=== PATIENT | female | born 1940 | race African-American/Black ===

== ENCOUNTER → 2022-02-07 | Emergency (ER) | payer SELFPAY ==
[~2022-02-07] VITALS: Ht 162.6 cm; Wt 74.1 kg
[~2022-02-07] MED LIST: ASPIRIN 325 MG TABLET PO ONE; CONTRAST GIVEN. MC PRN; DICL50TA4 PO; DICLOFENAC SODIUM 25 MG TABLET.DR PO ONE; IOHEXOL 350 MG/ML 100 ML VIAL. IV ONE; IV NORMAL SALINE 500ML BAG 500 ML IV ONE; NITR100C62 PO; cefTRIAXone IV Push 1 GM VIAL. IVP ONE
--- NOTE | 2022-02-07 17:35 | PHYS DOC ---
General Adult EDM: Chief Complaint: MULTIPLE COMPLAINTS HPI: HPI: Patient is a 81 year old female who presents with yesterday awoke with left chest, shoulder, elbow pain that is just " sore feeling". States the pain is worse with movement. She denies any kidney injury. She denies cardiac medical history. She states that she did smoke 17 years ago. She denies any cardiac history with her family but states that her family has a history of a " funny beat or extra beat". She states she takes no medications daily. Rates her pain at a 2 out of 10 this time. Denies numbness or tingling, shortness of breath, headache, abdominal pain, nausea, vomiting, diarrhea, syncope, fall, vision change, focal weakness, extremity swelling. Review of Systems: Review of Systems: Constitutional: Denies fever or chills. [] Eyes: Denies change in visual acuity. [] HENT: Denies nasal congestion or sore throat. [] Respiratory: Denies cough or shortness of breath. [] Cardiovascular: + chest pain or denies edema. [] GI: Denies abdominal pain, nausea, vomiting, bloody stools or diarrhea. [] : Denies dysuria. [] Musculoskeletal: Denies back pain or +left shoulder joint pain. +left elbow pain[] Integument: Denies rash. [] Neurologic: Denies headache, focal weakness or sensory changes. [] Endocrine: Denies polyuria or polydipsia. [] Lymphatic: Denies swollen glands. [] Psychiatric: Denies depression or anxiety. [] Heart Score: C/O Chest Pain: Yes HEART Score for Chest Pain: HEART Score for Chest Pain Response (Comments) Value History Slighlty/Non-Suspicious 0 ECG Normal 0 Age > 65 2 Risk Factors 1 or 2 Risk Factors 1 Troponin < Normal Limit 0 Total 3 Risk Factors: Risk Factors: DM, Current or recent (<one month) smoker, HTN, HLP, family history of CAD, obesity. Risk Scores: Score 0 - 3: 2.5% MACE over next 6 weeks - Discharge Home Score 4 - 6: 20.3% MACE over next 6 weeks - Admit for Clinical Observation Score 7 - 10: 72.7% MACE over next 6 weeks - Early Invasive Strategies Current Medications: Current Medications Medications (Trade) Dose Ordered Sig/Elaine Start Time Stop Time Status Last Admin Dose Admin Aspirin (Alexis Aspirin) 325 mg 1X ONCE 02/07/22 17:30 02/07/22 17:31 UNV Physical Exam: PE: Constitutional: Well developed, well nourished, no acute distress, non-toxic appearance. [] HENT: Normocephalic, atraumatic, bilateral external ears normal, oropharynx moist, no oral exudates, nose normal. [] Eyes: PERRLA, EOMI, conjunctiva normal, no discharge. [] Neck: Normal range of motion, no tenderness, supple, no stridor. [] Cardiovascular:Heart rate regular rhythm, no murmur. Pain reproducable over chest [] Lungs & Thorax: Bilateral breath sounds clear to auscultation [] Abdomen: Bowel sounds normal, soft, no tenderness, no masses, no pulsatile masses. [] Skin: Warm, dry, no erythema, no rash. [] Back: No tenderness, no CVA tenderness. [] Extremities: No tenderness, no cyanosis, no clubbing, Left Elbow and shoulder ROM intact but painful with movement, no edema. [] Neurologic: Alert and oriented X 3, normal motor function, normal sensory funct ion, no focal deficits noted. [] Psychologic: Affect normal, judgement normal, mood normal. [] EKG: EK and read by Dr Lakhani as irregular sinus rhythm, prolonged OR, no STEMI [address] Javier as irregular sinus rhythm but no STEMI Radiology/Procedures: Radiology/Procedures: [] Impression: [facility] [address] [place] [address] IMAGING REPORT Signed PATIENT: DIPAK RASMUSSEN ACCOUNT: [id number] : 1940 LOCATION: ER AGE: 81 SEX: F EXAM STATUS: PRE ER ORD. PHYSICIAN: MARISEL WILLS APRN REASON: pain PROCEDURE: PORTABLE CHEST 1V EXAM: AP View of the chest DATE: 02/07/2022 5:34 PM INDICATION: Reason: pain / Spl. Instructions: / History: COMPARISON: No Prior FINDINGS: The heart is not enlarged. Mediastinal and hilar contours are normal. No focal parenchymal airspace opacity. No pleural effusion or pneumothorax. Shoulder joint osteoarthritis IMPRESSION: 1. No radiographic evidence for acute cardiopulmonary process. Electronically signed by: Beto Epstein MD (02/07/2022 5:58 PM) DM DICTATED and SIGNED BY: BETO EPSTEIN MD DATE: 02/07/221756 [address] [address] IMAGING REPORT Signed PATIENT: DIPAK RASMUSSEN ACCOUNT: [id number] : 1940 LOCATION: ER AGE: 81 SEX: F EXAM STATUS: PRE ER ORD. PHYSICIAN: MARISEL WILLS APRN REASON: pain PROCEDURE: SHOULDER 2+V LEFT EXAM: 3 Views Left Shoulder DATE: 02/07/2022 5:34 PM INDICATION: pain COMPARISON: No Prior FINDINGS: There is no evidence for acute fracture or dislocation. AC joint is congruent. Bulky inferior projecting glenohumeral osteophytes. Mild AC joint degenerative. Humeral head is not high riding. IMPRESSION: 1. No acute fracture or dislocation. 2. Moderate left glenohumeral joint osteoarthritis. 3. Mild AC joint DJD. Electronically signed by: Beto Epstein MD (02/07/2022 5:59 PM) DM DICTATED and SIGNED BY: BETO EPSTEIN MD DATE: 02/07/[address] [address] IMAGING REPORT Signed PATIENT: DIPAK RASMUSSEN ACCOUNT: [id number] : 1940 LOCATION: ER AGE: 81 SEX: F EXAM STATUS: PRE ER ORD. PHYSICIAN: MARISEL WILLS APRN REASON: pain PROCEDURE: ELBOW LEFT 3V EXAM: 3 views of the left elbow DATE: 02/07/2022 5:34 PM INDICATION: Reason: pain / Spl. Instructions: / History: COMPARISON: No Prior FINDINGS: No elbow joint effusion. No acute fracture or dislocation. Left ulnohumeral joint degenerative changes, with mild proliferative change. Mild soft tissue swelling overlying the olecranon. IMPRESSION: 1. No acute fracture or dislocation. 2. Left elbow degenerative changes most prominent at the ulnohumeral joint. 3. Mild soft tissue swelling overlying the olecranon. Electronically signed by: Beto Epstein MD (02/07/2022 6:00 PM) DM DICTATED and SIGNED BY: BETO EPSTEIN MD DATE: 02/07/22 8359 [facility] [address] [place] [address] IMAGING REPORT Signed PATIENT: DIPAK RASMUSSEN ACCOUNT: [id number] : 1940 LOCATION: ER AGE: 81 SEX: F EXAM STATUS: REG ER ORD. PHYSICIAN: MARISEL WILLS APRN REASON: CHEST PAIN, TACHYCARDIA PROCEDURE: CT ANGIOGRAPHY CHEST EXAM: CT chest with contrast - pulmonary embolus protocol CLINICAL HISTORY: Reason: CHEST PAIN, TACHYCARDIA / Spl. Instructions: IV OMNI 350 90 MLS / History: . COMPARISON: None. TECHNIQUE: CT of the chest following the administration of intravenous contrast during the pulmonary arterial phase. Axial, coronal and sagittal reformatted images were generated including MIP images. ---PQRS compliance statement - One or more of the following individualized dose reduction techniques were utilized for this study: 1. Automated exposure control 2. Adjustment of the mA and/or kV according to patient size 3. Use of iterative reconstruction technique--- FINDINGS: CHEST: Diagnostic quality: Adequate. Pulmonary emboli: None seen Right heart strain: None Pulmonary arteries: Normal in caliber. Heart is not enlarged. No pericardial effusion. Coronary calcifications are seen. Reflux of contrast into the IVC and hepatic veins likely from contrast injection. No axillary lymphadenopathy. No mediastinal or hilar lymphadenopathy. Linear opacities lung bases, likely atelectasis. No lobar consolidation. No suspicious lung nodule or mass. Visualized Upper abdomen: Unremarkable. Bones: Multilevel degenerative changes of the spine are are seen. IMPRESSION: No evidence for acute pulmonary embolus. Electronically signed by: Beto Epstein MD (02/07/2022 7:08 PM) DM DICTATED and SIGNED BY: BETO PESTEIN MD DATE: 02/07/221901 Course & Med Decision Making: Course & Med Decision Making Pertinent Labs and Imaging studies reviewed. (See chart for details) See HPI. Alert and oriented x4. Ambulatory steady gait. Skin pink warm and dry. No joint or extremity edema. Radial pulse strong present. Cap refill less than 2 seconds. Pain over chest is reproducible with palpation. Pain in left extremity is reproduced with movement. Speaks in full clear sentences. On arrival patient's heart rate was 113. However once the patient was sitting resting in the room her heart rate goes from 96 up to 110. I spoke to Dr. Rico about the EKG and sent him the picture of the EKG. He states it is an irregular sinus rhythm. Patient's troponin came back negative. Awaiting second troponin. Patient does not want to be admitted as patient was offered. [] Dragon Disclaimer: Dragon Disclaimer: This electronic medical record was generated, in whole or in part, using a voice recognition dictation system. Departure Departure Impression: Primary Impression: Shoulder pain, left Qualified Codes: M25.512 - Pain in left shoulder Additional Impressions: Elbow pain, left Musculoskeletal chest pain Irregular cardiac rhythm Disposition: HOME / SELF CARE / HOMELESS Condition: STABLE Referrals: ANNI PATINO MD Patient Instructions: Arthritis, Degenerative-Brief, Chest Pain (Nonspecific), Hypertension, Musculoskeletal Pain Additional Instructions: Follow-up with your primary care physician this coming week as soon as possible. Begin having severe chest pain that will not go away, shortness of breath, dizziness, vomiting or numbness and tingling return to the emergency room. D rink plenty of fluids to stay hydrated. Try using a heating pad to your arm and shoulder. Take medication as prescribed and with food. Scripts Diclofenac Sodium (DICLOFENAC SODIUM) 50 Mg Tablet. 1 TAB PO BID PRN for PAIN for 10 Days, #20 TAB 1 Refill Prov: MARISEL WILLS APRN 02/07/22 MARISEL WILLS APRN February 07, 2022 17:35
[2022-02-07 17:38] LABS: BASO # 0.1 x10^3/uL (0.0-0.2); BASO % 1 % (0-3); EOS % 1 % (0-3); HEMATOCRIT 34.7 % (36.0-47.0); HEMOGLOBIN 11.8 g/dL (12.0-15.5); LYMPH % 19 % (24-48); MEAN CORPUSCULAR HEMOGLOBIN 29 pg (25-35); MEAN CORPUSCULAR HGB CONC 34 g/dL (31-37); MEAN CORPUSCULAR VOLUME 86 fL (79-100); MONO # 0.9 x10^3/uL (0.0-1.1); MONO % 8 % (0-9); NEUT # 7.7 x10^3/uL (1.8-7.7); NEUT % 72 % (31-73); PLATELET COUNT 328 x10^3/uL (140-400); RED BLOOD COUNT 4.02 x10^6/uL (3.50-5.40); RED CELL DISTRIBUTION WIDTH 14.4 % (11.5-14.5); WHITE BLOOD COUNT 10.8 x10^3/uL (4.0-11.0)
--- NOTE | 2022-02-07 18:00 | RAD ---
EXAM: AP View of the chest DATE: 02/07/2022 5:34 PM INDICATION: Reason: pain / Spl. Instructions: / History: COMPARISON: No Prior FINDINGS: The heart is not enlarged. Mediastinal and hilar contours are normal. No focal parenchymal airspace opacity. No pleural effusion or pneumothorax. Shoulder joint osteoarthritis IMPRESSION: 1. No radiographic evidence for acute cardiopulmonary process. Electronically signed by: Beto Delarosa MD (02/07/2022 5:58 PM) DM
--- NOTE | 2022-02-07 18:01 | RAD ---
EXAM: 3 Views Left Shoulder DATE: 02/07/2022 5:34 PM INDICATION: pain COMPARISON: No Prior FINDINGS: There is no evidence for acute fracture or dislocation. AC joint is congruent. Bulky inferior project ing glenohumeral osteophytes. Mild AC joint degenerative. Humeral head is not high riding. IMPRESSION: 1. No acute fracture or dislocation. 2. Moderate left glenohumeral joint osteoarthritis. 3. Mild AC joint DJD. Electronically signed by: Beto Delarosa MD (02/07/2022 5:59 PM) DM
--- NOTE | 2022-02-07 18:03 | RAD ---
EXAM: 3 views of the left elbow DATE: 02/07/2022 5:34 PM INDICATION: Reason: pain / Spl. Instructions: / History: COMPARISON: No Prior FINDINGS: No elbow joint effusion. No acute fracture or dislocation. Left ulnohumeral joint degenerative change s, with mild proliferative change. Mild soft tissue swelling overlying the olecranon. IMPRESSION: 1. No acute fracture or dislocation. 2. Left elbow degenerative changes most prominent at the ulnohumeral joint. 3. Mild soft tissue swelling overlying the olecranon. Electronically signed by: Beto Delarosa MD (02/07/2022 6:00 PM) DM
[2022-02-07 18:12] LABS: CALCIUM 9.3 mg/dL (8.5-10.1); CREATININE 0.7 mg/dL (0.6-1.0); GFR 80.3; POTASSIUM 3.9 mmol/L (3.5-5.1)
[2022-02-07 18:18] LABS: ALBUMIN 3.5 g/dL (3.4-5.0); ALBUMIN/GLOBULIN RATIO 0.7 (1.0-1.7); MAGNESIUM 1.9 mg/dL (1.8-2.4); TOTAL BILIRUBIN 0.5 mg/dL (0.2-1.0); TOTAL PROTEIN 8.6 g/dL (6.4-8.2)
--- NOTE | 2022-02-07 19:10 | RAD ---
EXAM: CT chest with contrast - pulmonary embolus protocol CLINICAL HISTORY: Reason: CHEST PAIN, TACHYCARDIA / Spl. Instructions: IV OMNI 350 90 MLS / History: . COMPARISON: None. TECHNIQUE: CT of the chest following the administration of intravenous contrast during the pulmonary arterial phase. Axial, coronal and sagittal reformatted images were generated including MIP images. ---PQRS compliance statement - One or more of the following individualized dose reduction techniques were utilized for this study: 1. Automated exposure control 2. Adjustment of the mA and/or kV according to patient size 3. Use of iterative reconstruction technique--- FINDINGS: CHEST: Diagnostic quality: Adequate. Pulmonary emboli: None seen Right heart strain: None Pulmonary arteries: Normal in caliber. Heart is not enlarged. No pericardial effusion. Coronary calcifications are seen. Reflux of contrast into the IVC and hepatic veins likely from contrast injection. No axillary lymphadenopathy. No mediastinal or hilar lymphadenopathy. Linear opacities lung bases, likely atelectasis. No lobar consolidation. No suspicious lung nodule or mass. Visualized Upper abdomen: Unremarkable. Bones: Multilevel degenerative changes of the spine are are seen. IMPRESSION: No evidence for acute pulmonary embolus. Electronically signed by: Beto Delarosa MD (02/07/2022 7:08 PM) DM
[2022-02-07 20:26] LABS: BARBITURATES NEG (NEG); BENZODIAZEPINES NEG (NEG); CANNABINOIDS POS (NEG); COCAINE NEG (NEG); METHADONE NEG (NEG); OPIATES NEG (NEG); PHENCYCLIDINE NEG (NEG)
[2022-02-07 20:27] LABS: AMPHETAMINE/METHAMPHETAMINE NEG (NEG)
[2022-02-07 20:37] LABS: RBC,URINE 0 /HPF (0-2)
[2022-02-07 20:38] LABS: BACTERIA,URINE MANY /HPF (0-FEW)
[2022-02-07 21:30] VITALS: BP 176/88
--- NOTE | 2022-02-08 05:53 | EKG ---
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
--- NOTE | 2022-02-11 07:45 | EKG ---
[facility] [address] [place] [address] Test Date: 2022-02-07 Test Time: 18:57:25 Pat Name: DIPAK RASMUSSEN Department: Room: Gender: F [employer] Manager: [id number] : 1940 Requested By: MARISEL WILLS Order Number: [id number] Reading MD: Fidel Christian Measurements Intervals [place] Rate: 98 P: [place]: QRS: 38 QRSD: 74 T: 29 QT: 340 QTc: 436 Interpretive Statements ATRIAL FIBRILLATION NON SPECIFIC ST-T WAVE CHANGES Electronically Signed On 02-14-2022 10:54:11 CDT by Fidel Christian
== END | disposition home or self-care (01) ==
LOC: ER 16:15
DX: M25.512 Pain in left shoulder (principal); M25.522 Pain in left elbow; R07.89 Other chest pain; I49.9 Cardiac arrhythmia, unspecified
CPT/HCPCS: 36415; 71045; 71275; 73030; 73080; 80053; 80307; 81001; 83690; 83735; 83880; 84443; 84484; 85025; 85379; 87086; 93005; 96374; 99285; J0696; Q9967